=== PATIENT | female | born 1990 | race Caucasian/White ===

== ENCOUNTER 2017-05-23 16:05 | Emergency (ER) | payer MEDICAID, OTHER ==
[~2017-05-23] VITALS: Ht 180.3 cm; Wt 53.5 kg
[2017-05-23 16:08] VITALS: BP 118/66; PULSE 98; RESP 17; TEMP 97.8; O2SAT 99
--- NOTE | 2017-05-23 18:05 | PD ---
HPI Chief Complaint: Related Problem Time Seen by Provider: 17:04 Travel History International Travel<30 days: No Contact w/Intl Traveler<30days: No Traveled to known affect area: No History of Present Illness HPI 26-year-old approximately five-week female presents to the emergency room for repeat beta hCG. Patient states she went to [facility] 2 days ago after finding out she was with significant bleeding. She had an ultrasound and a beta-hCG that she believes was 232 she is told to return in 2 days for repeat. She went back today but they're extremely busy. They told her to come to this facility because we are better equipped. Patient states her period was 5 days late this month and an abnormal color which is why she took a test in the first place. She had some cramping a few days ago but not at this time. No chronic medical conditions or daily medications. She denies fever, chills, nausea, vomiting, dysuria, urgency , or frequency. Patient reports her blood type is A+. PFSH Past Medical History Cancer: Yes (esophagus ) Medical other: Yes (hpv ) ?: LMP: 04/07/17 Past Surgical History Genitourinary Surgery: Yes (esophag ca) Social History Alcohol Use: No Tobacco Use: Yes (1/2 pack a day ) Substance Use: No Allergies-Medications (Allergen,Severity, Reaction): Coded Allergies: No Known Allergies (Unverified , 05/23/17) Reported Meds & Prescriptions Reported Meds & Active Scripts Active No Active Prescriptions or Reported Medications Review of Systems Except as stated in HPI: all other systems reviewed are Neg Physical Exam Narrative GENERAL: Well-nourished, well-developed female in no acute distress. Afebrile. Ambulatory. SKIN: Focused skin assessment warm/dry. HEAD: Normocephalic. EYES: No scleral icterus. No injection or drainage. NECK: Supple, trachea midline. No JVD or lymphadenopathy. CARDIOVASCULAR: Regular rate and rhythm without murmurs, gallops, or rubs. RESPIRATORY: Breath sounds equal bilaterally. No accessory muscle use. GASTROINTESTINAL: Abdomen soft, non-tender, nondistended. No guarding. No peritoneal signs. GENITOURINARY: Normal external genitalia without lesions or erythema. Vaginal vault with mild blood and no drainage. Cervical os was closed without purulent drainage. No cervical motion tenderness. Uterus nontender and nonenlarged. Bilateral adnexa nontender without masses. Data Data Last Documented VS Vital Signs Date Time Temp Pulse Resp B/P (MAP) Pulse Ox O2 Delivery O2 Flow Rate FiO2 05/23/17 19:19 55 16 114/65 (81) 100 Room Air 05/23/17 16:08 97.8 Orders Orders Beta Hcg (Quant/Titer) (05/23/17 17:25) Us Pelvis (Ques Pr/Ect)W Trans (05/23/17 ) Labs Laboratory Tests Test 05/23/17 17:40 Human Chorionic Gonadotropin, Quant 311 MIU/ML MDM Medical Decision Making Medical Screen Exam Complete: Yes Emergency Medical Condition: Yes Medical Record Reviewed: Yes Differential Diagnosis Ectopic , demise, early , subchorionic hemorrhage Narrative Course 26-year-old female presents to the emergency room for repeat beta hCG. States she found out she was and immediately went to the emergency room because she was having significant bleeding. Associated cramping at that time but none since. She is still bleeding. Patient had first test performed at [facility] 2 days ago. She believes her number was 232. I immediately requested records upon leaving the patient's room. At 20:10, I am still waiting. At this time it was decided to order a second ultrasound. Throughout the night multiple attempts were made to obtain records and they were never sent. Ultrasound ordered and pending, please see nighttime provider's notes for further details. Scripts No Active Prescriptions or Reported Meds Condition: Dora Kenny May 23, 2017 18:05
[2017-05-23 18:28] LABS: BETA HCG QUANT 311 MIU/ML (0-5)
[2017-05-23 19:19] VITALS: BP 114/65; PULSE 55; RESP 16; O2SAT 100
--- NOTE | 2017-05-23 21:16 | RADRPT ---
EXAM DATE/TIME: 05/23/2017 19:58 [facility] COMPARISON: No previous studies available for comparison. INDICATIONS : Bleeding with . LAB(S): Beta-hC MEDICAL HISTORY : Carcinoma, cervical. HPV. Carcinoma, esophageal. SURGICAL HISTORY : Left knee surgery. Esophageal surgery. ENCOUNTER: Initial ACUITY: 2 weeks PAIN SCORE: 4/10 LOCATION: Bilateral pelvis MEASUREMENTS: UTERUS: 7.2 x 4.7 x 4.3 cm ENDOMETRIAL STRIPE: 6 mm RIGHT OVARY: 5.2 x 2.5 x 1.3 cm LEFT OVARY: 3.4 x x 2.1 cm FREE FLUID: Yes CROWN RUMP LENGTH: NOT VISUALIZED = WKS DAYS FHR: NOT VISUALIZED BPM FINDINGS: UTERUS: The uterus is retroverted. No gestational sac seen. Endometrial stripe is normal in thickness. No mas s. RIGHT OVARY: There is an isoechoic structure associated with the upper pole the right ovary. It is somewhat exophy tic in nature measuring 17 x 13 x 11 mm. No posterior acoustical enhancement or shadowing. The right ovary is otherwise unremarkable. No hyperemia. LEFT OVARY: There is a complex thick walled cyst involving the left ovary. It measures 17 x 13 x 13 mm. No hypere sudeep. No gestational sac or yolk sac. The left ovary is otherwise unremarkable. MISCELLANEOUS: Mildly complex moderate volume fluid within the cul-de-sac. CONCLUSION: 1. No intrauterine gestation currently seen. With the quantitative beta hCG of 311 this could easily relate to the early gestational age which could be occult by ultrasound at this point. 2. Small lesion involving the right ovary. This is not consistent with an ectopic . Exact et iology is uncertain. A solid lesion versus a highly complex cyst. Consideration could be made to a ort-term followup ultrasound to evaluate for any change. 3. Mildly complex cyst involving the left ovary likely related to corpus luteal cyst. 4. Mildly complex moderate volume fluid within the cul-de-sac. Matty Simms Jr., MD on May 23, 2017 at 21:01 Board Certified Radiologist. This report was verified electronically.
--- NOTE | 2017-05-23 21:31 | PD ---
Data Data Last Documented VS Vital Signs Date Time Temp Pulse Resp B/P (MAP) Pulse Ox O2 Delivery O2 Flow Rate FiO2 05/23/17 19:19 55 16 114/65 (81) 100 Room Air 05/23/17 16:08 97.8 Orders Orders Beta Hcg (Quant/Titer) (05/23/17 17:25) Us Pelvis (Ques Pr/Ect)W Trans (05/23/17 ) Labs Laboratory Tests Test 05/23/17 17:40 Human Chorionic Gonadotropin, Quant 311 MIU/ML MDM Supervised Visit with AURE: Yes Narrative Course I, Dr. Alvarez, have reviewed the advance practice practitioner's documentation and am in agreement, met with the patient face to face, made the diagnosis, and the medical decision making was done by me. See her note for further details. Briefly this is a 26-year-old female , LMP April 07, here for evaluation of and vaginal bleeding. The patient reports that she was seen at [facility] almost 48 hours ago and had a beta hCG that was 232 with a pelvic ultrasound that did not show an ectopic. Patient was advised to have her beta hCG repeated in 48 hours. She decided to present at our facility instead of the initial facility that she was seen at 2 days ago. Several attempts were made to obtain records from [facility], however we were unsuccessful in obtaining these records. Beta hCG today is 311. Pelvic ultrasound: CONCLUSION: 1. No intrauterine gestation currently seen. With the quantitative beta hCG of 311 this could easily relate to the early gestational age which could be occult by ultrasound at this point. 2. Small lesion involving the right ovary. This is not consistent with an ectopic . Exact etiology is uncertain. A solid lesion versus a highly complex cyst. Consideration could be made to a short-term followup ultrasound to evaluate for any change. 3. Mildly complex cyst involving the left ovary likely related to corpus luteal cyst. 4. Mildly complex moderate volume fluid within the cul-de-sac. The patient was made aware of all findings per she is resting comfortably. Her vital signs are within normal limits. Pelvic exam performed by my PA shows a closed cervix with some blood in the vaginal vault coming from the cervical os. There are no peritoneal signs on exam. Patient reports that her blood type is A+. At this point the patient is stable for discharge home with repeat beta hCG in 48 hours with strict return instructions should she have worsening pain or any other concerning symptoms. She was also advised to follow-up with an OB/ RESIDENTIAL SALES EXECUTIVE physician this week. She was informed on when to return to the emergency department. She verbalizes understanding and agreement with plan. Diagnosis Primary Impression: First trimester bleeding Referrals: Assistant Professor Of Dietetics 2 days Additional Instruction: Follow-up with an [employer]INTENANCE physician this week. Return to the emergency department in 48 hours for repeat beta hCG. Return to the emergency Department sooner for worsening symptoms or any other concerns. Scripts No Active Prescriptions or Reported Meds Disposition: 01 DISCHARGE HOME Condition: Stable Anuj Alvarez MD May 23, 2017 21:31
== END 2017-05-23 21:44 | disposition home or self-care (01) ==
LOC: NEPD 16:05
DX: O46.91 Antepartum hemorrhage, unspecified, first trimester (principal); O34.81 Maternal care for other abnormalities of pelvic organs, first trimester; N83.202 Unspecified ovarian cyst, left side; O99.331 Smoking (tobacco) complicating pregnancy, first trimester; Z34.91 Encounter for supervision of normal pregnancy, unspecified, first trimester
CPT/HCPCS: 76700; 76817; 84702; 99284